=== PATIENT | male | born 1985 | race Caucasian/White ===

== ENCOUNTER 2017-08-16 09:15 | Emergency (ER) | payer SELFPAY ==
[2017-08-16 09:20] VITALS: BP 115/70; PULSE 64; TEMP 98; BMI 24.5
[2017-08-16] MEDS ORDERED: KETOROLAC TROMETHAMINE 60 MG/2 ML VIAL IM ONE (09:52)
[2017-08-16] MEDS ORDERED: KETOROLAC TROMETHAMINE 60 MG/2 ML VIAL ONE (09:55)
--- NOTE | 2017-08-16 10:05 | PDOC ---
History of Present Illness - General Chief Complaint: Pain, Acute Stated Complaint: LT SIDE PAIN Time Seen by Provider: 08/16/17 09:19 History Source: Patient Exam Limitations: No Limitations - History of Present Illness Initial Comments: CHIEF COMPLAINT: 31 y/o afebrile male with no significant PMH c/o right sided rib pain since this morning. HISTORY OF PRESENT ILLNESS: The patient admit his side hurts with movement and deep breaths. He was kicked in the same area during a soccer game 1 week ago. He woke up this morning and had the pain. He has a 9 month old son he lifts often. He denies fever, n/v/d, cough, hemoptysis, CP, SOB and all other symptoms. He did not take anything for his pain. Past History - Past Medical History Allergies/Adverse Reactions: Allergies Allergy/AdvReac Type Severity Reaction Status Date / Time No Known Allergies Allergy Verified 08/16/17 09:20 Home Medications: Ambulatory Orders NK [No Known Home Medication] 08/16/17 COPD: No - Suicide/Smoking/Psychosocial Hx Smoking History: Never smoked Review of Systems - Review of Systems Able to Perform ROS?: Yes Constitutional: No: Symptoms Reported HEENTM: No: Symptoms Reported Respiratory: No: Symptoms reported Cardiac (ROS): No: Symptoms Reported Musculoskeletal: Yes: Other (Right sided rib pain with movement and deep breaths ) *Physical Exam - Vital Signs Last Vital Signs Temp Pulse Resp BP Pulse Ox 98 F 64 18 115/70 99 08/16/17 09:17 08/16/17 09:17 08/16/17 09:17 08/16/17 09:17 08/16/17 09:17 - Physical Exam Comments: The patient is well appearing, ambulatory and speaks full sentences without difficulty. General Appearance: Yes: Nourished, Appropriately Dressed. No: Apparent Distress HEENT: negative: EOMI, OLY, Normal ENT Inspection, Normal Voice, Symmetrical, TMs Normal, Pharynx Normal, Pale Conjunctivae, Photophobia, Scleral Icterus (R) , Scleral Icterus (L), Muffled/Hoarse voice, Pharyngeal Erythema, Tonsillar Exudate, Tonsillar Erythema, Nasal Congestion, Rhinorrhea, Sinus Tenderness, Orbits, Hearing Decreased, Hearing Grossly Normal, TM Bulging, TM Dull, TM Erythema, Lesions, Resendez, Excessive drooling, Thrush, Other Respiratory/Chest: positive: Chest Tender, Lungs Clear (TTP of right chest wall mid axillary region.). negative: Respiratory Distress, Accessory Muscle Use, Labored Respiration Cardiovascular: positive: Regular Rhythm, Regular Rate Musculoskeletal: positive: Other (chest wall TTP of right side. No flail chest. No crepitus or deformities) ED Treatment Course - RADIOLOGY Radiology Studies Ordered: Category Date Time Status RIBS RIGHT SIDE [RAD] Stat Radiology 08/16/17 09:52 Ordered - Medications Given in the ED: ED Medications Discontinued Medications Generic Name Dose Route Start Last Admin Trade Name Freq PRN Reason Stop Dose Admin Ketorolac Tromethamine 60 mg 08/16/17 09:52 08/16/17 09:59 Toradol Injection - IM 08/16/17 09:53 60 mg ONCE ONE Administration Medical Decision Making - Medical Decision Making A/P: 31 y/o afebrile male with right sided rib pain. Most likely musculoskeletal. Will check xray because of trauma last week. Will give IM toradol Xray negative Will discharge to home with instructions to take NSAIDS for relief, take deep breaths multiple times per day and return to the ER with any worsening or concerning symptoms. Also suggested no heavy lifting until feeling better. The patient verbalizes understanding of all instructions, has no further questions and is awaiting discharge. *DC/Admit/Observation/Transfer Diagnosis at time of Disposition: Costochondritis, acute - Discharge Dispostion Disposition: HOME Condition at time of disposition: Good - Referrals - Patient Instructions Printed Discharge Instructions: DI for Costochondritis, How To Perform RICE ( Rest, Ice, Compress, Elevate) Additional Instructions: Discharge Instructions: -You pulled a muscle in your ribs -Please take deep breaths every hour -Take 600mg of over the counter Ibuprofen every 6 hours for pain -Avoid heavy lifting until you feel better -Return to the ER with any worsening or concerning symptoms. Instrucciones de descarga: -Tir de un msculo en genet costillas - Por favor respire profundo cada hora -Dorys 600 mg de Ibuprofeno sin receta cada 6 horas para el dolor -Evite levantar objetos pesados ??hasta que se sienta mejor -Volver a la jayjay de emergencias con cualquier empeoramiento o sntomas. Print Language: MALTESE - Post Discharge Activity Forms/Work/School Notes: Back to Work
== END 2017-08-16 10:41 | disposition home or self-care (01) ==
LOC: JERFT 09:15
PROC: 3E0233Z Introduction of Anti-inflammatory into Muscle, Percutaneous Approach (ICD-10-PCS; principal; 2017-08-16)
DX: M94.0 Chondrocostal junction syndrome [Tietze] (principal)
CPT/HCPCS: 71101-TC-RT-FY; 99281-25